=== PATIENT | male | born 1975 | race Caucasian/White ===

== ENCOUNTER 2019-10-28 21:52 | Emergency (ER) | payer OTHER ==
[~2019-10-28] VITALS: Ht 180.3 cm; Wt 68.9 kg
[2019-10-28 21:55] VITALS: BP 121/74
[2019-10-28 22:30] LABS: BASOPHILS # (AUTO) 0.06 x10^3/uL (0-0.1); BASOPHILS % (AUTO) 1 % (0-1); EOSINOPHILS # (AUTO) 0.28 x10^3/uL (0-0.4); EOSINOPHILS % (AUTO) 4 % (1-7); LYMPHOCYTES # (AUTO) 1.48 x10^3/uL (1-3.4); LYMPHOCYTES % (AUTO) 21 % (22-44); MD NO; MEAN CORPUSCULAR HEMOGLOBIN 31.8 pg (27.5-34.5); MEAN CORPUSCULAR HGB CONC 33.9 g/dL (33.2-36.2); MEAN CORPUSCULAR VOLUME 93.9 fL (81-97); MEAN PLATELET VOLUME 7.3 fL (7.4-10.4); MONOCYTES # (AUTO) 1.23 x10^3/uL (0.2-0.8); MONOCYTES % (AUTO) 18 % (2-9); NEUTROPHILS # (AUTO) 3.88 x10^3/uL (1.8-6.8); NEUTROPHILS % (AUTO) 56 % (42-75); PLATELET COUNT 272 x10^3/uL (130-400); RED CELL DISTRIBUTION WIDTH 12.9 % (9.4-14.8)
[2019-10-28 22:42] LABS: ALANINE AMINOTRANSFERASE 29 U/L (12-78); ALBUMIN 3.9 g/dL (3.4-5.0); ANION GAP 10 mmol/L (5-15); CALCIUM 8.8 mg/dL (8.5-10.1); CHLORIDE 112 mmol/L (98-107); CREATININE 0.97 mg/dL (0.7-1.3)
[2019-10-28 22:46] LABS: ALKALINE PHOSPHATASE 83 U/L (45-117); BILIRUBIN,TOTAL 0.3 mg/dL (0.2-1.0); TOTAL PROTEIN 7.5 g/dL (6.4-8.2); TROPONIN I < 0.015 ng/mL (0.000-0.045)
== END 2019-10-28 23:04 | disposition home or self-care (01) ==
LOC: ED 22:49
DX: R07.89 Other chest pain (principal); Z87.891 Personal history of nicotine dependence
CPT/HCPCS: 36415; 71045; 80053; 83690; 84484; 85025; 93005; 99284

== ENCOUNTER 2020-12-22 12:53 | Emergency (ER) | payer OTHER ==
[~2020-12-22] VITALS: Ht 180.3 cm; Wt 65.0 kg
--- NOTE | 2020-12-22 13:14 | NUR ---
PT BIB FRIEND VIA POV. PT STATES "I'M IN A LOT OF PAIN ON BOTH SIDES OF GROIN". PT STATES PAIN HAS BEEN ON AND OFF FOR 3 WEEKS. STARTED LAST NIGHT "REALLY BAD" AND NEVER LET UP. PT RESTING IN LEIA RICHARDS AT THIS TIME, PT STATES PAIN IS 10/10, FRIEND AT BEDSIDE, CORI.
[2020-12-22] MEDS ORDERED: ONDANSETRON 2MG/ML, 2ML ONE (13:50)
[2020-12-22] MEDS ORDERED: MORPHINE SULFATE 4 MG/ML, 1ML ONE (13:51)
[2020-12-22 13:54] LABS: BASOPHILS % (AUTO) 1 % (0-1); EOSINOPHILS % (AUTO) 1 % (1-7); LYMPHOCYTES % (AUTO) 22 % (22-44); MEAN CORPUSCULAR HEMOGLOBIN 32.4 pg (27.5-34.5); MEAN CORPUSCULAR HGB CONC 35.1 g/dL (33.2-36.2); MEAN PLATELET VOLUME 6.8 fL (7.4-10.4); MONOCYTES % (AUTO) 14 % (2-9); NEUTROPHILS % (AUTO) 63 % (42-75); PLATELET COUNT 279 x10^3/uL (130-400); RED BLOOD COUNT 4.88 x10^6/uL (4.38-5.82); RED CELL DISTRIBUTION WIDTH 13.5 % (9.4-14.8)
[2020-12-22 13:55] LABS: MD NO
[2020-12-22 14:00] LABS: ALBUMIN 4.1 g/dL (3.4-5.0); ANION GAP 9 mmol/L (5-15); CALCIUM 9.8 mg/dL (8.5-10.1); CHLORIDE 104 mmol/L (98-107); CREATININE 1.19 mg/dL (0.7-1.3)
[2020-12-22] MEDS ORDERED: MORPHINE SULFATE 4 MG/ML, 1ML IVPush PRN (14:00)
[2020-12-22] MEDS ORDERED: ONDANSETRON 2MG/ML, 2ML IVPush ONE (14:00)
--- NOTE | 2020-12-22 14:01 | NUR ---
PT STATES HE IS UNABLE TO PROVIDE URINE SAMPLE AT THIS TIME.
--- NOTE | 2020-12-22 14:38 | NUR ---
REPORT FROM [facility]
--- NOTE | 2020-12-22 14:39 | NUR ---
REPORT TO HAROLDO ROWLEY.
--- NOTE | 2020-12-22 15:32 | NUR ---
PT TO BATHROOM FOR UA
[2020-12-22 16:04] LABS: MICROSCOPIC INDICATED
--- NOTE | 2020-12-22 16:30 | NUR ---
PT RESTING, DENIES PAIN.
--- NOTE | 2020-12-22 17:26 | NUR ---
Patient/Caregiver given discharge instructions and they have confirmed that they understand the instructions. Patient ambulatory with steady gait.
[2020-12-22 17:27] VITALS: BP 120/81
== END 2020-12-22 17:32 | disposition home or self-care (01) ==
LOC: ED 13:47
DX: I86.1 Scrotal varices (principal); R10.30 Lower abdominal pain, unspecified
CPT/HCPCS: 36415; 76870; 80048; 81001; 82040; 85025; 87086; 87491; 87591; 96374; 96375; 99284; J2270; J2405

== ENCOUNTER 2021-03-03 11:01 | Emergency (ER) | payer OTHER ==
[~2021-03-03] VITALS: Ht 154.9 cm; Wt 68.7 kg
[2021-03-03 11:16] VITALS: BP 120/72
[2021-03-03] MEDS ORDERED: LIDOCAINE-MPF 1%, 5ML INFIL ONE ×2 (11:30→13:00)
--- NOTE | 2021-03-03 11:31 | NUR ---
right hand laceration at work, bleeding controlled. no other symptoms reported. shellie schwab at bedside for evaluation.
[2021-03-03] MEDS ORDERED: LIDOCAINE-MPF 1%, 5ML ONE ×2 (11:33→12:32)
[2021-03-03] MEDS ORDERED: IBUPROFEN 800 MG TABLET PO ONE (12:30)
[2021-03-03] MEDS ORDERED: IBUPROFEN 800 MG TABLET ONE (12:50)
--- NOTE | 2021-03-03 13:01 | NUR ---
EMT AND MARIANA MELTON CLEANED AND SUTURED WOUND. DISCHARGE INSTRUCTIONS REVIEWED.
== END 2021-03-03 13:04 | disposition home or self-care (01) ==
LOC: ED 12:50
DX: S61.411A Laceration without foreign body of right hand, initial encounter (principal); W23.0XXA Caught, crushed, jammed, or pinched between moving objects, initial encounter; Y93.89 Activity, other specified; Y92.69 Other specified industrial and construction area as the place of occurrence of the external cause; Y99.0 Civilian activity done for income or pay
CPT/HCPCS: 12042; 99284